=== PATIENT | male | born 1980 | race Caucasian/White ===

== ENCOUNTER → 2021-07-28 | Outpatient (REF) | LOC: LAB 09:49 | DX: Z00.00 Encounter for general adult medical examination without abnormal findings (principal); Z13.6 Encounter for screening for cardiovascular disorders; Z13.1 Encounter for screening for diabetes mellitus ==

== ENCOUNTER → 2024-07-31 | Outpatient (CLI) | payer OTHER ==
[2024-07-31 09:17] LABS: ALBUMIN 4.6 g/dL (3.5-5.0)
[2024-07-31 09:18] LABS: CALCIUM 10.2 mg/dL (8.3-10.5)
[2024-07-31 09:19] LABS: TOTAL PROTEIN 7.4 g/dL (6.4-8.3)
[2024-07-31 09:21] LABS: TOTAL BILIRUBIN 1.2 mg/dL (0.2-1.2)
== END ==
LOC: LAB 08:54
PROVIDERS: Family Medicine
DX: Z13.1 Encounter for screening for diabetes mellitus (principal); E78.1 Pure hyperglyceridemia